=== PATIENT | female | born 1970 | race Caucasian/White ===

== ENCOUNTER → 2021-04-27 | Day surgery (SDC) | payer OTHER ==
[~2021-04-27] VITALS: Ht 154.9 cm; Wt 95.2 kg
[~2021-04-27] MED LIST: ALPRAZOLAM ER0.5 MG PO; COQ-1030 MG PO; ESTRACE0.5 MG PO; OMEPRAZOLE40 MG PO; PLAQUENIL200 MG PO; PROZAC20 MG PO; ULTRAM50 MG PO; VITAMIN D325 MC2 PO; ZYRTEC10 M3 PO
== END | disposition home or self-care (01) ==
LOC: FAS 08:35
DX: D12.3 Benign neoplasm of transverse colon (principal); K29.50 Unspecified chronic gastritis without bleeding; K64.8 Other hemorrhoids; K64.4 Residual hemorrhoidal skin tags; K21.9 Gastro-esophageal reflux disease without esophagitis; M06.9 Rheumatoid arthritis, unspecified; F41.9 Anxiety disorder, unspecified; F17.210 Nicotine dependence, cigarettes, uncomplicated; Z79.899 Other long term (current) drug therapy
CPT/HCPCS: J2250; J2704; J7120